=== PATIENT | male | born 1990 | race African-American/Black ===

== ENCOUNTER 2020-04-22 11:27 | Emergency (ER) | payer SELFPAY ==
[~2020-04-22] VITALS: Ht 193 cm; Wt 96.3 kg
[2020-04-22 11:35] VITALS: BP 110/69
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
[2020-04-22] MEDS ORDERED: LIDOCAINE 1%-EPI 1:100K, 20ML ONE (12:02)
[2020-04-22] MEDS ORDERED: NEOSPORIN OINT. PKT 1 PACKET ONE (12:16)
== END 2020-04-22 12:25 | disposition home or self-care (01) ==
LOC: ED 12:00
DX: S61.210A Laceration without foreign body of right index finger without damage to nail, initial encounter (principal); W26.0XXA Contact with knife, initial encounter; Y93.89 Activity, other specified; Y92.098 Other place in other non-institutional residence as the place of occurrence of the external cause; Y99.8 Other external cause status
CPT/HCPCS: 99282

== ENCOUNTER 2020-05-23 09:58 | Emergency (ER) | payer SELFPAY ==
[~2020-05-23] VITALS: Ht 193 cm; Wt 93.3 kg
[2020-05-23 10:15] VITALS: BP 130/78
[2020-05-23] MEDS ORDERED: OXYcodone/APAP 10/325MG TABLET ONE (10:27)
[2020-05-23] MEDS ORDERED: OXYcodone/APAP 10/325MG TABLET PO ONE (10:30)
--- NOTE | 2020-05-23 10:53 | NUR ---
Patient given FANI wrap, crutches, discharge instructions and Rx, they have confirmed that they understand the instructions. Patient ambulatory with steady gait via crutch use.
== END 2020-05-23 11:13 | disposition home or self-care (01) ==
LOC: ED 11:00
DX: S90.31XA Contusion of right foot, initial encounter (principal); M79.89 Other specified soft tissue disorders; X58.XXXA Exposure to other specified factors, initial encounter; Y93.89 Activity, other specified; Y92.488 Other paved roadways as the place of occurrence of the external cause; Y99.8 Other external cause status
CPT/HCPCS: 99283